=== PATIENT | male | born 1975 | race African-American/Black ===

== ENCOUNTER 2020-12-29 20:02 | Emergency (ER) | payer MEDICARE, MEDICAID ==
[~2020-12-29] VITALS: Ht 172.7 cm; Wt 84.5 kg
[~2020-12-29 20:02] MED LIST: ALBUTEROL SUL0.083 % IN; ALBUTEROL2.5 MG/3 M IN; CIPRO500 MG OR; MEDDOSEPAK OR; PREDNISONE20 MG PO
[2020-12-29 23:15] VITALS: BP 134/84
[2020-12-30] MEDS ORDERED: ZPAK PO (18:35)
[2020-12-30] MEDS ORDERED: TRAMADOL HYDROC50 M1 PO (18:35)
[2020-12-30] MEDS ORDERED: PROAIR HFA108 MCG/AC PO (18:35)
[2020-12-30] MEDS ORDERED: PREDNISONE50 MG PO (18:35)
== END 2020-12-29 23:15 | disposition home or self-care (01) ==
LOC: ED 20:02
PROC: 0RSKXZZ Reposition Left Shoulder Joint, External Approach (ICD-10-PCS; principal; 2020-12-29)
DX: S43.015A Anterior dislocation of left humerus, initial encounter (principal); J45.909 Unspecified asthma, uncomplicated; F17.200 Nicotine dependence, unspecified, uncomplicated; W17.89XA Other fall from one level to another, initial encounter; Y93.89 Activity, other specified; Y92.007 Garden or yard of unspecified non-institutional (private) residence as the place of occurrence of the external cause

== ENCOUNTER 2021-04-11 11:08 | Emergency (ER) | payer MEDICARE, MEDICAID ==
[~2021-04-11] VITALS: Ht 172.7 cm; Wt 85.0 kg
[~2021-04-11 11:08] MED LIST changes: +PREDNISONE50 MG PO; +PROAIR HFA108 MCG/AC PO; +TRAMADOL HYDROC50 M1 PO; +ZPAK PO
[2021-04-11] MEDS ORDERED: VENTOLIN HFA IN (12:30)
[2021-04-11] MEDS ORDERED: MEDDOSEPAK PO (12:30)
[2021-04-11 13:15] VITALS: BP 127/78
== END 2021-04-11 13:35 | disposition home or self-care (01) ==
LOC: ED 11:08
DX: J45.901 Unspecified asthma with (acute) exacerbation (principal); F17.210 Nicotine dependence, cigarettes, uncomplicated

== ENCOUNTER 2021-08-09 00:08 | Emergency (ER) | payer MEDICARE, MEDICAID ==
[2021-08-09] VITALS (9 sets, daily range): BP systolic 97–131; BP diastolic 61–78
[~2021-08-09] VITALS: Ht 172.7 cm; Wt 82.0 kg
[~2021-08-09 00:08] MED LIST changes: +MEDDOSEPAK PO; +VENTOLIN HFA IN
[2021-08-09 00:42] LABS: HEMATOCRIT 42.3 % (39.0-50.0); HEMOGLOBIN 13.4 g/dl (14.0-18.0); IMMATURE GRANULOCYTES 0.4 % (0.0-5.0); MEAN CELL VOLUME 87.6 fL CALC (80.0-100.0); MEAN CORPUSCULAR HGB 27.7 pG CALC (26.0-32.0); MEAN CORPUSCULAR HGB CONC 31.7 g/dL CAL (32.0-36.0); NEUT# 3.91 thou/uL (1.82-7.42); RED BLOOD COUNT 4.83 mill/uL (4.70-6.10); RED CELL DISTRI WIDTH 14.4 % (11.5-15.5)
[2021-08-09 00:57] LABS: ALBUMIN 3.9 g/dL (3.2-5.0); ALKALINE PHOSPHATASE 96 u/l (38-126); ANION GAP 14 (6-22 (CALC)); BUN 12 mg/dL (9-20); BUN/CREATININE RATIO 9 (12-20 (CALC)); CARBON DIOXIDE 24 mmol/l (22-30); CHLORIDE 110 mmol/l (95-108); CREATININE 1.2 mg/dL (0.7-1.3); GFR FOR AFR.AMER. > 60 ML/MIN (>=60 (CALC)); GFR OTHER RACES > 60 ML/MIN (>=60 (CALC)); POTASSIUM 4.3 mmol/l (3.5-5.1); SGOT/AST 22 u/l (17-59); SODIUM 143 mmol/l (137-146); TOTAL PROTEIN 7.5 g/dL (6.3-8.2)
[2021-08-09 01:00] LABS: BILIRUBIN, TOTAL 0.2 mg/dL (0.0-1.4)
[2021-08-09] MEDS ORDERED: PREDNISONE50 MG PO (01:45)
[2021-08-09] MEDS ORDERED: VENTOLIN HFA IN (01:45)
== END 2021-08-09 02:00 | disposition home or self-care (01) ==
LOC: ED 00:08
PROVIDERS: Family Medicine
DX: J45.901 Unspecified asthma with (acute) exacerbation (principal); F17.210 Nicotine dependence, cigarettes, uncomplicated; Z20.822 Contact with and (suspected) exposure to COVID-19

== ENCOUNTER 2021-11-18 13:24 | Emergency (ER) | payer MEDICARE, MEDICAID ==
[~2021-11-18] VITALS: Ht 172.7 cm; Wt 85.7 kg
[2021-11-18 13:47] LABS: HEMATOCRIT 45.9 % (39.0-50.0); HEMOGLOBIN 15.3 g/dl (14.0-18.0); IMMATURE GRANULOCYTES 0.1 % (0.0-5.0); MEAN CELL VOLUME 84.8 fL CALC (80.0-100.0); MEAN CORPUSCULAR HGB 28.3 pG CALC (26.0-32.0); MEAN CORPUSCULAR HGB CONC 33.3 g/dL CAL (32.0-36.0); NEUT# 5.57 thou/uL (1.82-7.42); RED BLOOD COUNT 5.41 mill/uL (4.70-6.10); RED CELL DISTRI WIDTH 14.4 % (11.5-15.5)
[2021-11-18 14:08] LABS: ALBUMIN 4.5 g/dL (3.2-5.0); ALKALINE PHOSPHATASE 99 u/l (38-126); ANION GAP 15 (6-22 (CALC)); BUN 12 mg/dL (9-20); BUN/CREATININE RATIO 10 (12-20 (CALC)); CARBON DIOXIDE 24 mmol/l (22-30); CHLORIDE 105 mmol/l (95-108); CREATININE 1.2 mg/dL (0.7-1.3); GFR FOR AFR.AMER. > 60 ML/MIN (>=60 (CALC)); GFR OTHER RACES > 60 ML/MIN (>=60 (CALC)); SODIUM 140 mmol/l (137-146)
[2021-11-18 14:11] LABS: BILIRUBIN, TOTAL 0.5 mg/dL (0.0-1.4); SGOT/AST 40 u/l (17-59)
[2021-11-18] MEDS ORDERED: PREDNISONE20 MG PO (15:59)
[2021-11-18] MEDS ORDERED: ZPAK PO (15:59)
[2021-11-18] MEDS ORDERED: VENTOLIN HFA108 MCG IN (15:59)
[2021-11-18] MEDS ORDERED: IPRATROPIU0.5 MG/3 M IN (15:59)
[2021-11-18 16:07] VITALS: BP 137/98
== END 2021-11-18 16:17 | disposition home or self-care (01) ==
LOC: ED 13:24
PROVIDERS: Nurse Practitioner
DX: J45.901 Unspecified asthma with (acute) exacerbation (principal); F17.200 Nicotine dependence, unspecified, uncomplicated; R06.02 Shortness of breath

== ENCOUNTER 2022-11-21 07:47 | Emergency (ER) | payer MEDICARE, MEDICAID ==
[~2022-11-21] VITALS: Ht 172.7 cm; Wt 77.8 kg
[~2022-11-21 07:47] MED LIST changes: +IPRATROPIU0.5 MG/3 M IN; +VENTOLIN HFA108 MCG IN
[2022-11-21 08:06] VITALS: BP 110/59
[2022-11-21 08:41] VITALS: BP 115/81
[2022-11-21 08:47] LABS: BASO% 0.2 % (0-3); HEMATOCRIT 42.5 % (39.0-50.0); HEMOGLOBIN 13.9 g/dl (14.0-18.0); IMMATURE GRANULOCYTES 0.3 % (0.0-5.0); LYMPH% 7.4 % (15-41); MEAN CELL VOLUME 84.5 fL CALC (80.0-100.0); MEAN CORPUSCULAR HGB 27.6 pG CALC (26.0-32.0); MEAN CORPUSCULAR HGB CONC 32.7 g/dL CAL (32.0-36.0); MONO% 3.9 % (2-13); NEUT# 8.22 thou/uL (1.82-7.42); NEUT% 88.2 % (42-76); RED BLOOD COUNT 5.03 mill/uL (4.70-6.10); RED CELL DISTRI WIDTH 14.2 % (11.5-15.5)
[2022-11-21 09:07] LABS: ALBUMIN 4.4 g/dL (3.2-5.0); ALKALINE PHOSPHATASE 86 u/l (38-126); ANION GAP 12 (6-22 (CALC)); BILIRUBIN, TOTAL 0.5 mg/dL (0.2-1.3); BUN 15 mg/dL (9-20); BUN/CREATININE RATIO 17 (12-20 (CALC)); CARBON DIOXIDE 25 mmol/l (22-30); CHLORIDE 102 mmol/l (95-108); CREATININE 0.9 mg/dL (0.7-1.3); GFR FOR AFR.AMER. > 60 ML/MIN (>=60 (CALC)); GFR OTHER RACES > 60 ML/MIN (>=60 (CALC)); LIPASE 61 u/l (23-300); POTASSIUM 4.6 mmol/l (3.5-5.1); SGOT/AST 34 u/l (17-59); SODIUM 134 mmol/l (137-146); TOTAL PROTEIN 8.6 g/dL (6.3-8.2)
[2022-11-21 09:17] VITALS: BP 121/81
[2022-11-21 10:03] LABS: URINE BILIRUBIN - DIPSTICK Negative (NEGATIVE); URINE BLOOD DIPSTICK Negative (NEGATIVE); URINE GLUCOSE - DIPSTICK Negative (NEGATIVE); URINE KETONE Negative (NEGATIVE); URINE LEUK ESTERASE Negative (NEGATIVE); URINE NITRITE - DIPSTICK Negative (Negative); URINE PROTEIN - DIPSTICK Negative (NEG-TRACE); URINE UROBILINOGEN - DIPSTICK 0.2 E.U./dL (0.2)
[2022-11-21 10:04] LABS: URINE COLOR Yellow
[2022-11-21 10:09] VITALS: BP 121/81
== END 2022-11-21 09:57 | disposition left against medical advice (07) ==
LOC: ED 07:47
PROVIDERS: Family Medicine
DX: K59.00 Constipation, unspecified (principal); K50.90 Crohn's disease, unspecified, without complications; J45.909 Unspecified asthma, uncomplicated; F17.200 Nicotine dependence, unspecified, uncomplicated; Z53.29 Procedure and treatment not carried out because of patient's decision for other reasons
CPT/HCPCS: Q9967

== ENCOUNTER 2023-02-27 04:42 | Emergency (ER) | payer MEDICARE, MEDICAID ==
[~2023-02-27] VITALS: Ht 172.7 cm; Wt 81.6 kg
[2023-02-27 05:26] LABS: BASO% 0.7 % (0-3); EOS% 9.1 % (0-8); HEMATOCRIT 43.1 % (39.0-50.0); HEMOGLOBIN 13.6 g/dl (14.0-18.0); LYMPH% 24.7 % (15-41); MEAN CELL VOLUME 85.9 fL CALC (80.0-100.0); MEAN CORPUSCULAR HGB 27.1 pG CALC (26.0-32.0); MEAN CORPUSCULAR HGB CONC 31.6 g/dL CAL (32.0-36.0); MONO% 9.8 % (2-13); NEUT# 3.07 thou/uL (1.82-7.42); NEUT% 55.7 % (42-76); RED BLOOD COUNT 5.02 mill/uL (4.70-6.10); RED CELL DISTRI WIDTH 14.3 % (11.5-15.5)
[2023-02-27] MEDS ORDERED: PREDNISONE50 MG PO (06:42)
[2023-02-27] MEDS ORDERED: VENTOLIN HFA IN (06:42)
[2023-02-27 06:47] VITALS: BP 112/82
== END 2023-02-27 06:55 | disposition home or self-care (01) ==
LOC: ED 04:42
PROVIDERS: Family Medicine
DX: J45.901 Unspecified asthma with (acute) exacerbation (principal); F17.200 Nicotine dependence, unspecified, uncomplicated; Z20.822 Contact with and (suspected) exposure to COVID-19

== ENCOUNTER 2023-05-02 20:08 | Emergency (ER) | payer MEDICARE, MEDICAID ==
[~2023-05-02] VITALS: Ht 172.7 cm; Wt 60.0 kg
[2023-05-02] VITALS (7 sets, daily range): BP systolic 68–113; BP diastolic 31–83
[2023-05-02] MEDS ORDERED: ALBUTEROL SULFATE 2.5 MG VIAL IN ONE (20:30)
[2023-05-02] MEDS ORDERED: methylPREDNISolone SODIUM SUCC 125 MG/2 ML SDV IV ONE (20:35)
[2023-05-02] MEDS ORDERED: PREDNISONE20 MG PO (22:58)
[2023-05-02] MEDS ORDERED: ALBUTEROL108 MCG/AC PO (22:58)
== END 2023-05-02 23:08 | disposition home or self-care (01) ==
LOC: ED 20:08
DX: J45.901 Unspecified asthma with (acute) exacerbation (principal); J44.9 Chronic obstructive pulmonary disease, unspecified; F17.210 Nicotine dependence, cigarettes, uncomplicated; Z20.822 Contact with and (suspected) exposure to COVID-19

== ENCOUNTER 2023-10-07 03:43 | Emergency (ER) | payer MEDICARE, MEDICAID ==
[~2023-10-07] VITALS: Ht 172.7 cm; Wt 90.0 kg
[2023-10-07] VITALS (8 sets, daily range): BP systolic 100–134; BP diastolic 55–84
[~2023-10-07 03:43] MED LIST changes: +ALBUTEROL108 MCG/AC PO; +PREDNISONE10 MG PO; +VENTOLIN HFA108 MCG PO
[2023-10-07] MEDS ORDERED: IPRATROPIUM-Albuterol 0.5MG-2.5MG/3 ML IN STA (03:54)
[2023-10-07] MEDS ORDERED: methylPREDNISolone SODIUM SUCC 125 MG/2 ML SDV IV STA (03:54)
[2023-10-07] MEDS ORDERED: ALBUTEROL SULFATE 2.5 MG VIAL IN ONE (03:55)
[2023-10-07] MEDS ORDERED: EPINEPHrine HCL 1 MG/ML AMP IM ONE (03:55)
[2023-10-07] MEDS ORDERED: SODIUM CHLORIDE 0.9% 1,000 ML IV ONE (04:05)
[2023-10-07] MEDS ORDERED: MAGNESIUM SULFATE HEPTAHYDRATE 50 ML IV ONE (04:05)
[2023-10-07 04:27] LABS: BASO% 0.5 % (0-3); EOS% 5.7 % (0-8); HEMATOCRIT 42.2 % (39.0-50.0); HEMOGLOBIN 13.7 g/dl (14.0-18.0); IMMATURE GRANULOCYTES 0.7 % (0.0-5.0); LYMPH% 19.9 % (15-41); MEAN CELL VOLUME 85.1 fL CALC (80.0-100.0); MEAN CORPUSCULAR HGB 27.6 pG CALC (26.0-32.0); MEAN CORPUSCULAR HGB CONC 32.5 g/dL CAL (32.0-36.0); MONO% 8.8 % (2-13); NEUT# 5.91 thou/uL (1.82-7.42); NEUT% 64.4 % (42-76); RED BLOOD COUNT 4.96 mill/uL (4.70-6.10); RED CELL DISTRI WIDTH 13.9 % (11.5-15.5)
[2023-10-07 04:41] LABS: ALBUMIN 4.2 g/dL (3.2-5.0); POTASSIUM 4.1 mmol/l (3.5-5.1); TOTAL PROTEIN 7.8 g/dL (6.3-8.2)
[2023-10-07] MEDS ORDERED: STERAPRED DS10 MG PO ×2 (05:38→05:51)
== END 2023-10-07 06:33 | disposition home or self-care (01) ==
LOC: ED 03:43
PROVIDERS: Family Medicine
DX: J45.909 Unspecified asthma, uncomplicated (principal); F14.10 Cocaine abuse, uncomplicated; F17.200 Nicotine dependence, unspecified, uncomplicated; Z20.822 Contact with and (suspected) exposure to COVID-19
CPT/HCPCS: J3475

== ENCOUNTER 2023-10-08 05:17 | Emergency (ER) | payer MEDICARE, MEDICAID ==
[2023-10-08] VITALS (7 sets, daily range): BP systolic 125–141; BP diastolic 79–101
[~2023-10-08] VITALS: Ht 172.7 cm; Wt 81.0 kg
[~2023-10-08 05:17] MED LIST changes: +STERAPRED DS10 MG PO
[2023-10-08] MEDS ORDERED: Pantoprazole Sodium 40 MG VIAL (Protonix) IV STA (05:34)
[2023-10-08] MEDS ORDERED: SODIUM CHLORIDE 0.9% 1,000 ML IV STA (05:34)
[2023-10-08] MEDS ORDERED: ACETAMINOPHEN 500 MG TAB PO ONE (05:35)
[2023-10-08] MEDS ORDERED: KETOROLAC TROMETHAMINE 30 MG/ML SDV IV ONE (05:35)
[2023-10-08] MEDS ORDERED: DIATRIZOATE MEGLUMINE & SODIUM 30 ML/BTL BTL PO ONE (05:35)
[2023-10-08] MEDS ORDERED: methylPREDNISolone SODIUM SUCC 125 MG/2 ML SDV IV ONE (05:35)
[2023-10-08 06:02] LABS: BASO% 0.3 % (0-3); HEMATOCRIT 41.7 % (39.0-50.0); HEMOGLOBIN 13.7 g/dl (14.0-18.0); IMMATURE GRANULOCYTES 0.4 % (0.0-5.0); LYMPH% 11.5 % (15-41); MEAN CELL VOLUME 85.6 fL CALC (80.0-100.0); MEAN CORPUSCULAR HGB 28.1 pG CALC (26.0-32.0); MEAN CORPUSCULAR HGB CONC 32.9 g/dL CAL (32.0-36.0); MONO% 8.9 % (2-13); NEUT# 9.62 thou/uL (1.82-7.42); NEUT% 78.9 % (42-76); RED BLOOD COUNT 4.87 mill/uL (4.70-6.10); RED CELL DISTRI WIDTH 14.3 % (11.5-15.5)
[2023-10-08 06:36] LABS: ALBUMIN 4.5 g/dL (3.2-5.0); BILIRUBIN, TOTAL 0.6 mg/dL (0.2-1.3); POTASSIUM 4.1 mmol/l (3.5-5.1); TOTAL PROTEIN 8.1 g/dL (6.3-8.2)
[2023-10-08] MEDS ORDERED: IPRATROPIUM-Albuterol 0.5MG-2.5MG/3 ML NEB ONE ×2 (07:35)
[2023-10-08 08:09] LABS: URINE BILIRUBIN - DIPSTICK Negative (NEGATIVE); URINE BLOOD DIPSTICK Negative (NEGATIVE); URINE GLUCOSE - DIPSTICK Negative (NEGATIVE); URINE KETONE Negative (NEGATIVE); URINE LEUK ESTERASE Negative (NEGATIVE); URINE NITRITE - DIPSTICK Negative (Negative); URINE PH 5.5 (4.5-8.0); URINE PROTEIN - DIPSTICK Negative (NEG-TRACE); URINE SPECIFIC GRAVITY <=1.005; URINE UROBILINOGEN - DIPSTICK 0.2 E.U./dL (0.2)
[2023-10-08 08:10] LABS: URINE COLOR Yellow
== END 2023-10-08 09:29 | disposition home or self-care (01) ==
LOC: ED 05:17
PROVIDERS: Family Medicine
DX: R10.11 Right upper quadrant pain (principal); R06.2 Wheezing; J44.9 Chronic obstructive pulmonary disease, unspecified; K50.90 Crohn's disease, unspecified, without complications; F17.210 Nicotine dependence, cigarettes, uncomplicated
CPT/HCPCS: J2470; Q9967

== ENCOUNTER 2023-11-27 10:00 | Emergency (ER) | payer MEDICARE, MEDICAID ==
[~2023-11-27] VITALS: Ht 172.7 cm; Wt 81.6 kg
[2023-11-27 10:36] VITALS: BP 110/77
[2023-11-27 10:45] VITALS: BP 107/73
[2023-11-27] MEDS ORDERED: ALBUTEROL SULFATE 2.5 MG VIAL IN ONE (10:55)
[2023-11-27] MEDS ORDERED: methylPREDNISolone SODIUM SUCC 125 MG/2 ML SDV IV ONE (10:55)
[2023-11-27] MEDS ORDERED: IPRATROPIUM-Albuterol 0.5MG-2.5MG/3 ML NEB ONE (10:55)
[2023-11-27 11:00] VITALS: BP 109/78
[2023-11-27 11:15] VITALS: BP 104/73
[2023-11-27 11:27] LABS: CREATININE 0.8 mg/dL (0.7-1.3); POTASSIUM 3.7 mmol/l (3.5-5.1)
[2023-11-27 11:29] LABS: BASO% 0.7 % (0-3); EOS% 9.4 % (0-8); HEMATOCRIT 38.2 % (39.0-50.0); HEMOGLOBIN 12.5 g/dl (14.0-18.0); IMMATURE GRANULOCYTES 0.3 % (0.0-5.0); LYMPH% 17.8 % (15-41); MEAN CELL VOLUME 86.8 fL CALC (80.0-100.0); MEAN CORPUSCULAR HGB 28.4 pG CALC (26.0-32.0); MEAN CORPUSCULAR HGB CONC 32.7 g/dL CAL (32.0-36.0); NEUT# 3.49 thou/uL (1.82-7.42); NEUT% 59.8 % (42-76); RED BLOOD COUNT 4.4 mill/uL (4.70-6.10); RED CELL DISTRI WIDTH 14.1 % (11.5-15.5)
[2023-11-27] MEDS ORDERED: VENTOLIN HFA108 MCG PO (12:28)
[2023-11-27 12:31] VITALS: BP 104/73
== END 2023-11-27 12:35 | disposition home or self-care (01) ==
LOC: ED 10:00
PROVIDERS: Family Medicine
DX: J45.901 Unspecified asthma with (acute) exacerbation (principal); J44.9 Chronic obstructive pulmonary disease, unspecified; K50.90 Crohn's disease, unspecified, without complications; F17.200 Nicotine dependence, unspecified, uncomplicated